=== PATIENT | male | born 1995 | race African-American/Black ===

== ENCOUNTER 2018-08-23 14:15 | Emergency (ER) | payer SELFPAY ==
[~2018-08-23] VITALS: Ht 170.2 cm; Wt 63.5 kg
[2018-08-23 14:29] VITALS: BP 125/75
[2018-08-23] MEDS ORDERED: LIDOCAINE 1% Multi-Dose 20 ML VIAL. INJ ONE (14:45)
[2018-08-23] MEDS ORDERED: DIPHTH,PERTUSS(ACELL),TET TOX 0.5 ML DISP.SYRIN. VAX IM ONE (14:45)
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
== END 2018-08-23 15:54 | disposition home or self-care (01) ==
LOC: ER 14:15
DX: S01.81XA Laceration without foreign body of other part of head, initial encounter (principal); Y00.XXXA Assault by blunt object, initial encounter; Y93.89 Activity, other specified; Y92.009 Unspecified place in unspecified non-institutional (private) residence as the place of occurrence of the external cause; Y99.8 Other external cause status
CPT/HCPCS: 12013; 99283

== ENCOUNTER 2019-02-26 15:48 | Emergency (ER) | payer SELFPAY ==
[~2019-02-26] VITALS: Ht 170.2 cm; Wt 63.5 kg
[2019-02-26 16:05] VITALS: BP 123/69
[2019-02-26] MEDS ORDERED: CYCL10TA2 PO (16:36)
[2019-02-26] MEDS ORDERED: NAPR-514 PO (16:36)
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
== END 2019-02-26 16:42 | disposition home or self-care (01) ==
LOC: ER 15:48
DX: M25.512 Pain in left shoulder (principal); M54.5 Low back pain; M54.6 Pain in thoracic spine; R51 Headache; G89.11 Acute pain due to trauma; F17.210 Nicotine dependence, cigarettes, uncomplicated; V09.09XA Pedestrian injured in nontraffic accident involving other motor vehicles, initial encounter; Y93.89 Activity, other specified; Y92.481 Parking lot as the place of occurrence of the external cause; Y99.8 Other external cause status
CPT/HCPCS: 99283

== ENCOUNTER 2020-12-11 18:59 | Emergency (ER) | payer OTHER ==
[~2020-12-11] VITALS: Ht 170.2 cm; Wt 65.9 kg
[~2020-12-11 18:59] MED LIST: CYCL10TA2 PO; NAPR-514 PO
[2020-12-11] MEDS ORDERED: IBUPROFEN 200 MG TABLET. PO ONE (22:00)
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
[2020-12-11] MEDS ORDERED: IBUP-1007 PO (23:05)
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
[2020-12-11 23:24] VITALS: BP 113/64
== END 2020-12-11 23:25 | disposition home or self-care (01) ==
LOC: ER 18:59
DX: S09.90XA Unspecified injury of head, initial encounter (principal); M54.2 Cervicalgia; F12.10 Cannabis abuse, uncomplicated; V43.52XA Car driver injured in collision with other type car in traffic accident, initial encounter; Y93.89 Activity, other specified; Y92.410 Unspecified street and highway as the place of occurrence of the external cause; Y99.8 Other external cause status
CPT/HCPCS: 70450; 70486; 72125; 99285-25